=== PATIENT | female | born 1950 | race Caucasian/White ===

== ENCOUNTER 2021-10-07 20:41 | Inpatient (IN) ==
[2021-10-07] MEDS ORDERED: ALUM/MAG/SIMETH/LIDO VISC 1:1 30 ML BOTTLE PO STA (21:14)
[2021-10-07] MEDS ORDERED: SODIUM CHLORIDE 0.9% 1,000 ML IV STA (21:14)
[2021-10-07] MEDS ORDERED: ONDANSETRON 4 MG/2 ML VIAL IV STA (21:14)
[2021-10-07] MEDS ORDERED: PANTOPRAZOLE 40 MG TABLET PO STA (21:14)
[2021-10-07] MEDS ORDERED: MORPHINE 2 MG/1 ML SYRINGE IV STA ×2 (21:14→22:45)
[2021-10-07 21:20] LABS: Basophils % 0.2 % (0.0-0.8); Eosinophils % 0.2 % (0.00-10.9); Hematocrit 39.9 VOL% (35.7-47.0); Immature Granulocytes % 0.6 %; Immature Granulocytes Absolute 0.04 #; Lymphocytes % 15.6 % (21.3-54.2); Mean Corpuscular HGB Conc 32.6 GM/DL (32-36); Mean Corpuscular Volume 92.1 FL (87-102); Mean Platelet Volume 9.3 FL (9.6-12.0); Monocytes % 6.4 % (1.7-12.7); Platelet Count 219 T/CUMM (130-400); Red Blood Count 4.33 MC/CUMM (3.8-5.5); White Blood Count 6.4 T/CUMM (4-12)
[2021-10-07 21:40] LABS: Band Neutrophils 24 % (0-10); Eosinophils 1 % (0-10); Lymphocytes 16 % (20-55); Segmented Neutrophils 56 % (50-85); Total Cells Counted 100
[2021-10-07 21:41] LABS: Platelet Estimate Adequate
[2021-10-07 21:42] LABS: Albumin 3.6 G/DL (3.4-5.0); Bilirubin,Total 0.7 MG/DL (0.20-1.00); Calcium 9.3 MG/DL (8.5-10.1); Potassium 3.5 MMOL/L (3.5-5.1)
[2021-10-07] MEDS ORDERED: HYDROmorphone 2 MG/1 ML VIAL ONE (22:57)
[2021-10-07] MEDS ORDERED: HYDROmorphone 2 MG/1 ML VIAL IV STA (23:02)
[2021-10-08] MEDS ORDERED: KETOROLAC 30 MG/1 ML VIAL IV STA (00:13)
[2021-10-08] MEDS ORDERED: DEXTROSE 50% 25 GM/50 ML VIAL IV PRN (00:20)
[2021-10-08] MEDS ORDERED: KETOROLAC 30 MG/1 ML VIAL IV PRN (00:24)
[2021-10-08] MEDS ORDERED: DEXTROSE 50% 25 GM/50 ML SYRINGE IV PRN (00:29)
[2021-10-08 00:36] LABS: Bacteria,Urine Occasional /HPF (Few); Bilirubin,Urine Negative (Negative); Blood, Urine Moderate mg/dL (Negative); Glucose,Urine (UA) Negative (Negative); Ketones,Urine Negative (Negative); Nitrite,Urine Negative (Negative); Protein,Urine Negative; RBC,Urine 2 /HPF (0-4); Squamous Epithelial Cell,Urine Occasional /HPF (0-10); Urine Appearance CLEAR (Clear); Urine Color Yellow (Yellow); Urine Urobilinogen < 2.0 EU/DL (<2.0)
[2021-10-08 00:37] LABS: Urine Specific Gravity > 1.045 (1.001-1.035)
[2021-10-08] MEDS: SODIUM CHLORIDE 0.9% 1,000 ML IV SCH ×2 (01:06→16:28)
[2021-10-08] MEDS: ONDANSETRON 4 MG/2 ML VIAL IV PRN ×2 (01:48→06:47)
[2021-10-08 07:00] LABS: Basophils % 0.2 % (0.0-0.8); Eosinophils % 0.4 % (0.00-10.9); Hemoglobin 11.6 GM/DL (12.0-16.0); Immature Granulocytes % 0.2 %; Immature Granulocytes Absolute 0.01 #; Lymphocytes # 0.8 10*3/uL (1.4-4.0); Mean Corpuscular HGB Conc 32.2 GM/DL (32-36); Mean Platelet Volume 9.4 FL (9.6-12.0); Monocytes % 9.9 % (1.7-12.7); Neutrophils % 72.3 % (38.7-73.9); Platelet Count 181 T/CUMM (130-400); Red Blood Count 3.83 MC/CUMM (3.8-5.5); Red Cell Distribution Width 13.9 % (9.3-17.3); White Blood Count 4.6 T/CUMM (4-12)
[2021-10-08 07:19] LABS: Albumin 2.8 G/DL (3.4-5.0); Band Neutrophils 11 % (0-10); Bilirubin,Total 0.4 MG/DL (0.20-1.00); Calcium 8.9 MG/DL (8.5-10.1); Hypochromia Slight; Lymphocytes 13 % (20-55); Microcytosis Slight; Osmolality,Calculated 284.5 MOS/KG (273-304); Platelet Estimate Adequate; Potassium 3.7 MMOL/L (3.5-5.1); Segmented Neutrophils 67 % (50-85); Total Cells Counted 100; Total Protein 6.7 G/DL (6.4-8.2)
[2021-10-08] MEDS: ENOXAPARIN 40 MG/0.4 ML SYRINGE SUBCUT SCH (09:01)
[2021-10-08] MEDS: PANTOPRAZOLE 40 MG VIAL IV SCH (10:12)
[2021-10-08] MEDS ORDERED: KETOROLAC 15 MG/1 ML VIAL IV PRN (12:23)
[2021-10-08] MEDS ORDERED: HYDROmorphone 2 MG/1 ML VIAL IV PRN (12:23)
[2021-10-08] MEDS: LACTATED RINGERS 1,000 ML IV SCH ×2 (12:56→23:34)
[2021-10-08] MEDS: HYDROmorphone 2 MG/1 ML VIAL IV PRN ×2 (13:32→20:46)
[2021-10-08] MEDS ORDERED: PHENOL 1.4% THROAT SPRAY 177 ML BOTTLE PO PRN (14:50)
[2021-10-09] MEDS: HYDROmorphone 2 MG/1 ML VIAL IV PRN ×2 (03:28→12:32)
[2021-10-09 05:34] LABS: Basophils % 0.2 % (0.0-0.8); Eosinophils % 0.2 % (0.00-10.9); Hematocrit 33.7 VOL% (35.7-47.0); Hemoglobin 10.4 GM/DL (12.0-16.0); Immature Granulocytes % 0.4 %; Immature Granulocytes Absolute 0.02 #; Lymphocytes # 1.1 10*3/uL (1.4-4.0); Lymphocytes % 22.8 % (21.3-54.2); Mean Corpuscular HGB Conc 30.9 GM/DL (32-36); Mean Corpuscular Volume 96.3 FL (87-102); Monocytes % 7.4 % (1.7-12.7); Platelet Count 188 T/CUMM (130-400); White Blood Count 4.9 T/CUMM (4-12)
[2021-10-09 06:01] LABS: Alanine Aminotransferase 15 U/L (13-56); Albumin 2.5 G/DL (3.4-5.0); Alkaline Phosphatase 45 U/L (45-117); Aspartate Amino Transferase 20 U/L (0-37); Bilirubin,Total < 0.39 MG/DL (0.20-1.00); Blood Urea Nitrogen 27 MG/DL (7-18); Calcium 8.7 MG/DL (8.5-10.1); Carbon Dioxide 22 MMOL/L (21-32); Estimated Glom Filtration Rate 87 ML/MIN; Glucose 75 MG/DL (74-106); Osmolality,Calculated 284.3 MOS/KG (273-304); Potassium 3.5 MMOL/L (3.5-5.1); Sodium 141 MMOL/L (136-145); Total Protein 6.4 G/DL (6.4-8.2)
[2021-10-09 06:14] LABS: Band Neutrophils 6 % (0-10); Lymphocytes 19 % (20-55); Platelet Estimate Normal; Segmented Neutrophils 70 % (50-85); Total Cells Counted 100
[2021-10-09] MEDS: LACTATED RINGERS 1,000 ML IV SCH ×2 (10:14→20:57)
[2021-10-09] MEDS: PANTOPRAZOLE 40 MG VIAL IV SCH (10:15)
[2021-10-09] MEDS: ENOXAPARIN 40 MG/0.4 ML SYRINGE SUBCUT SCH (10:15)
[2021-10-09] MEDS: ZALEPLON 5 MG CAPSULE PO SCH (20:56)
[2021-10-10] MEDS: LACTATED RINGERS 1,000 ML IV SCH ×3 (02:31→07:18)
[2021-10-10 04:03] LABS: Basophils % 0.5 % (0.0-0.8); Eosinophils % 0.5 % (0.00-10.9); Hematocrit 40.7 VOL% (35.7-47.0); Immature Granulocytes % 0.5 %; Immature Granulocytes Absolute 0.02 #; Lymphocytes # 1.4 10*3/uL (1.4-4.0); Mean Corpuscular HGB Conc 31.9 GM/DL (32-36); Mean Corpuscular Volume 94.4 FL (87-102); Mean Platelet Volume 9.2 FL (9.6-12.0); Monocytes % 6.4 % (1.7-12.7); Neutrophils % 57.1 % (38.7-73.9); Platelet Count 145 T/CUMM (130-400); Red Blood Count 4.31 MC/CUMM (3.8-5.5); Red Cell Distribution Width 13.5 % (9.3-17.3); White Blood Count 4.1 T/CUMM (4-12)
[2021-10-10 04:12] LABS: Calcium 8.5 MG/DL (8.5-10.1); Osmolality,Calculated 285.8 MOS/KG (273-304); Potassium 3.4 MMOL/L (3.5-5.1)
[2021-10-10] MEDS: PRAMIPEXOLE 1 MG TABLET PO SCH (09:31)
[2021-10-10] MEDS: PANTOPRAZOLE 40 MG VIAL IV SCH (09:31)
[2021-10-10] MEDS: lisinopriL 20 MG TABLET PO SCH (09:31)
[2021-10-10] MEDS: OXYBUTYNIN XL 10 MG TABLET PO SCH (09:31)
[2021-10-10] MEDS: ENOXAPARIN 40 MG/0.4 ML SYRINGE SUBCUT SCH (09:31)
[2021-10-10] MEDS ORDERED: POTASSIUM CHLORIDE 20 MEQ TABLET PO ONE (13:15)
[2021-10-10] MEDS: ONDANSETRON 4 MG/2 ML VIAL IV PRN (17:04)
[2021-10-10] MEDS: ZALEPLON 5 MG CAPSULE PO SCH (21:04)
[2021-10-11] MEDS: lisinopriL 20 MG TABLET PO SCH (10:01)
[2021-10-11] MEDS: OXYBUTYNIN XL 10 MG TABLET PO SCH (10:01)
[2021-10-11] MEDS: PRAMIPEXOLE 1 MG TABLET PO SCH (10:01)
[2021-10-11] MEDS: ENOXAPARIN 40 MG/0.4 ML SYRINGE SUBCUT SCH (10:02)
[2021-10-11] MEDS: PANTOPRAZOLE 40 MG VIAL IV SCH (10:02)
[2021-10-11] MEDS: ONDANSETRON 4 MG/2 ML VIAL IV PRN (12:20)
[2021-10-11] MEDS: ZALEPLON 5 MG CAPSULE PO SCH (21:23)
[2021-10-12] MEDS: PRAMIPEXOLE 1 MG TABLET PO SCH (09:14)
[2021-10-12] MEDS: ENOXAPARIN 40 MG/0.4 ML SYRINGE SUBCUT SCH (09:14)
[2021-10-12] MEDS: lisinopriL 20 MG TABLET PO SCH (09:14)
[2021-10-12] MEDS: OXYBUTYNIN XL 10 MG TABLET PO SCH (09:15)
[2021-10-12] MEDS: PANTOPRAZOLE 40 MG VIAL IV SCH (09:17)
[2021-10-12] MEDS: DOCUSATE SODIUM 100 MG CAPSULE PO SCH ×2 (15:14→21:24)
[2021-10-12] MEDS: POLYETHYLENE GLYCOL POWDER 17 GM PACK PO SCH ×2 (15:14→21:26)
[2021-10-12] MEDS: ZALEPLON 5 MG CAPSULE PO SCH (21:24)
[2021-10-13 06:06] LABS: Basophils % 0.4 % (0.0-0.8); Eosinophils % 0.6 % (0.00-10.9); Hematocrit 30.9 VOL% (35.7-47.0); Immature Granulocytes % 5.8 %; Immature Granulocytes Absolute 0.42 #; Lymphocytes # 2.3 10*3/uL (1.4-4.0); Lymphocytes % 31.3 % (21.3-54.2); Mean Corpuscular HGB Conc 33.3 GM/DL (32-36); Mean Corpuscular Volume 91.2 FL (87-102); Mean Platelet Volume 9.7 FL (9.6-12.0); Monocytes % 7.1 % (1.7-12.7); Neutrophils % 54.8 % (38.7-73.9)
[2021-10-13 06:21] LABS: Hemoglobin 10.3 GM/DL (12.0-16.0); Platelet Count 225 T/CUMM (130-400); Red Blood Count 3.39 MC/CUMM (3.8-5.5); White Blood Count 7.2 T/CUMM (4-12)
[2021-10-13 06:28] LABS: Eosinophils 1 % (0-10); Hypochromia Slight; Lymphocytes 35 % (20-55); Microcytosis Slight; Platelet Estimate Adequate; Segmented Neutrophils 58 % (50-85); Total Cells Counted 100
[2021-10-13 06:31] LABS: Calcium 8.6 MG/DL (8.5-10.1); Osmolality,Calculated 281.1 MOS/KG (273-304); Potassium 3.4 MMOL/L (3.5-5.1)
[2021-10-13] MEDS ORDERED: MAGNESIUM HYDROXIDE SUSP 30 ML UDCUP PO ONE (08:24)
[2021-10-13] MEDS ORDERED: LINACLOTIDE 145 MCG CAPSULE PO SCH (08:30)
[2021-10-13] MEDS: POLYETHYLENE GLYCOL POWDER 17 GM PACK PO SCH (08:46)
[2021-10-13] MEDS: ENOXAPARIN 40 MG/0.4 ML SYRINGE SUBCUT SCH (08:47)
[2021-10-13] MEDS: PANTOPRAZOLE 40 MG VIAL IV SCH (08:49)
[2021-10-13] MEDS: lisinopriL 20 MG TABLET PO SCH (08:49)
[2021-10-13] MEDS: OXYBUTYNIN XL 10 MG TABLET PO SCH (08:49)
[2021-10-13] MEDS: DOCUSATE SODIUM 100 MG CAPSULE PO SCH (08:49)
[2021-10-13 13:24] VITALS: BP 144/56
[2021-10-13] MEDS ORDERED: PRAMIPEXOLE 1 MG TABLET PO SCH (21:00)
== END 2021-10-13 16:10 | disposition home or self-care (01) | DRG 389 ==
LOC: N.ED 20:41 → N.EDINP 20:41 → SUATTDRO 10-08 00:20 → N.EDINP 10-08 09:47 → N.TELEN 10-08 10:16 → SUATTDRO 10-10 14:33
PROVIDERS: ADMIT Internal Medicine; ATTEND Hospitalist

== ENCOUNTER 2022-09-28 03:13 | Inpatient (IN) ==
[2022-09-28] MEDS ORDERED: ONDANSETRON 4 MG/2 ML VIAL IV STA (03:47)
[2022-09-28] MEDS ORDERED: HYDROmorphone 1 MG/1 ML SYRINGE IV STA (03:47)
[2022-09-28] MEDS ORDERED: KETOROLAC 30 MG/1 ML VIAL IV STA (03:47)
[2022-09-28 03:48] LABS: Basophils % 0.2 % (0.0-0.8); Eosinophils # 0.1 10*3/uL (0.0-0.87); Eosinophils % 0.5 % (0.00-10.9); Hematocrit 38.7 VOL% (35.7-47.0); Hemoglobin 12.2 GM/DL (12.0-16.0); Immature Granulocytes % 0.6 %; Immature Granulocytes Absolute 0.08 #; Lymphocytes # 1.8 10*3/uL (1.4-4.0); Lymphocytes % 13.9 % (21.3-54.2); Mean Corpuscular HGB Conc 31.5 GM/DL (32-36); Mean Corpuscular Volume 96.5 FL (87-102); Mean Platelet Volume 9.1 FL (9.6-12.0); Monocytes # 0.6 10*3/uL (0.11-0.8); Monocytes % 4.5 % (1.7-12.7); Neutrophils % 80.3 % (38.7-73.9); Platelet Count 263 T/CUMM (130-400); Red Blood Count 4.01 MC/CUMM (3.8-5.5); Red Cell Distribution Width 13.4 % (9.3-17.3); White Blood Count 12.9 T/CUMM (4-12)
[2022-09-28] MEDS ORDERED: SODIUM CHLORIDE 0.9% 1,000 ML IV STA (03:48)
[2022-09-28] MEDS ORDERED: KETOROLAC 30 MG/1 ML VIAL ONE (03:49)
[2022-09-28] MEDS ORDERED: HYDROmorphone 1 MG/1 ML SYRINGE ONE (03:49)
[2022-09-28 04:11] LABS: Alanine Aminotransferase 20 U/L (13-56); Alkaline Phosphatase 69 U/L (45-117); Aspartate Amino Transferase 13 U/L (0-37); Bilirubin,Total < 0.39 MG/DL (0.20-1.00); Blood Urea Nitrogen 24 MG/DL (7-18); Calcium 9.5 MG/DL (8.5-10.1); Carbon Dioxide 22 MMOL/L (21-32); Chloride 110 MMOL/L (98-107); Glucose 180 MG/DL (74-106); Osmolality,Calculated 283.7 MOS/KG (273-304); Potassium 4.3 MMOL/L (3.5-5.1); Sodium 138 MMOL/L (136-145); Total Protein 7.8 G/DL (6.4-8.2)
[2022-09-28] MEDS ORDERED: ACETAMINOPHEN 325 MG TABLET PO PRN (05:59)
[2022-09-28] MEDS ORDERED: hydrALAZINE 20 MG/1 ML VIAL IV PRN (05:59)
[2022-09-28] MEDS: HYDROmorphone 1 MG/1 ML SYRINGE IV PRN ×3 (06:22→14:56)
[2022-09-28 06:32] LABS: Bacteria,Urine Occasional /HPF (Few); Mucus,Urine Occasional /LPF (Occasional); RBC,Urine 106 /HPF (0-4); Squamous Epithelial Cell,Urine Few /HPF (0-10)
[2022-09-28 06:33] LABS: Bilirubin,Urine Negative (Negative); Blood, Urine Large mg/dL (Negative); Glucose,Urine (UA) Negative (Negative); Ketones,Urine Negative (Negative); Nitrite,Urine Negative (Negative); Protein,Urine Negative (Negative); Urine Appearance Clear (Clear); Urine Color Yellow (Yellow); Urine Specific Gravity > 1.030 (1.001-1.035); Urine Urobilinogen 0.2 eU/dL (<2.0); Urine pH 5.5 (4.5-8.0)
[2022-09-28] MEDS ORDERED: NICOTINE 21 MG/24 HR PATCH TRANSDERM PRN (06:36)
[2022-09-28] MEDS: LEVOFLOXACIN INJ 750 MG/150 ML PREMIX IV SCH (08:01)
[2022-09-28] MEDS: LACTATED RINGERS 1,000 ML IV SCH ×2 (10:07→14:55)
[2022-09-28] MEDS: PANTOPRAZOLE 40 MG TABLET PO SCH (10:08)
[2022-09-28] MEDS: ONDANSETRON 4 MG/2 ML VIAL IV PRN ×2 (12:00→14:55)
[2022-09-28] MEDS: INSULIN LISPRO 100 UNIT/ML SUBCUT SCH ×2 (13:03→17:53)
[2022-09-29] MEDS: INSULIN LISPRO 100 UNIT/ML SUBCUT SCH ×4 (00:03→19:18)
[2022-09-29] MEDS: LACTATED RINGERS 1,000 ML IV SCH ×3 (01:23→19:25)
[2022-09-29 05:40] LABS: Calcium 8.8 MG/DL (8.5-10.1); Potassium 4.5 MMOL/L (3.5-5.1)
[2022-09-29 05:55] LABS: Basophils % 0.3 % (0.0-0.8); Eosinophils # 0.1 10*3/uL (0.0-0.87); Eosinophils % 1.1 % (0.00-10.9); Hematocrit 30.8 VOL% (35.7-47.0); Hemoglobin 9.8 GM/DL (12.0-16.0); Immature Granulocytes % 0.4 %; Immature Granulocytes Absolute 0.03 #; Lymphocytes # 2.6 10*3/uL (1.4-4.0); Lymphocytes % 37.4 % (21.3-54.2); Mean Corpuscular HGB Conc 31.8 GM/DL (32-36); Mean Corpuscular Volume 97.2 FL (87-102); Mean Platelet Volume 9.5 FL (9.6-12.0); Monocytes # 0.5 10*3/uL (0.11-0.8); Neutrophils % 53.8 % (38.7-73.9); Platelet Count 189 T/CUMM (130-400); Red Blood Count 3.17 MC/CUMM (3.8-5.5); Red Cell Distribution Width 13.2 % (9.3-17.3)
[2022-09-29] MEDS ORDERED: TOBRAMYCIN INJ 80 MG in SODIUM CHLORIDE 0.9% 100 ML IV ONE ×2 (07:00→11:00)
[2022-09-29] MEDS: PANTOPRAZOLE 40 MG TABLET PO SCH (08:20)
[2022-09-29] MEDS: LEVOFLOXACIN INJ 750 MG/150 ML PREMIX IV SCH (08:20)
[2022-09-29] MEDS ORDERED: LIDOCAINE 2% 5 ML VIAL ONE (08:58)
[2022-09-29] MEDS ORDERED: propofoL 200 MG/20 ML VIAL IV ONE (08:58)
[2022-09-29] MEDS ORDERED: fentaNYL 100 MCG/2 ML VIAL ONE (08:59)
[2022-09-29] MEDS ORDERED: MIDAZOLAM 2 MG/2 ML VIAL ONE (08:59)
[2022-09-29] MEDS: HYDROmorphone 1 MG/1 ML SYRINGE IV PRN ×4 (11:21→23:10)
[2022-09-29] MEDS ORDERED: ROCURONIUM 50 MG/5 ML VIAL IV ONE (13:54)
[2022-09-29] MEDS ORDERED: LACTATED RINGERS 1,000 ML IV ONE (14:28)
[2022-09-29] MEDS ORDERED: ePHEDrine 50 MG/ML VIAL ONE (14:28)
[2022-09-29] MEDS ORDERED: DEXAMETHASONE 4 MG/1 ML VIAL ONE (14:28)
[2022-09-29] MEDS ORDERED: SEVOFLURANE 1 UNIT/15 MINUTE INH ONE (14:28)
[2022-09-29] MEDS ORDERED: ONDANSETRON 4 MG/2 ML VIAL ONE (14:28)
[2022-09-29] MEDS ORDERED: SUGAMMADEX 200 MG/2 ML VIAL IV ONE (14:37)
[2022-09-30] MEDS: LACTATED RINGERS 1,000 ML IV SCH ×2 (03:09→10:24)
[2022-09-30] MEDS: HYDROmorphone 1 MG/1 ML SYRINGE IV PRN (04:58)
[2022-09-30 05:33] LABS: Basophils % 0.1 % (0.0-0.8); Hematocrit 31.3 VOL% (35.7-47.0); Hemoglobin 10.3 GM/DL (12.0-16.0); Immature Granulocytes % 0.6 %; Immature Granulocytes Absolute 0.07 #; Lymphocytes # 1.5 10*3/uL (1.4-4.0); Lymphocytes % 13.6 % (21.3-54.2); Mean Corpuscular HGB Conc 32.9 GM/DL (32-36); Mean Corpuscular Volume 95.1 FL (87-102); Mean Platelet Volume 9.3 FL (9.6-12.0); Monocytes # 0.6 10*3/uL (0.11-0.8); Monocytes % 4.9 % (1.7-12.7); Neutrophils % 80.8 % (38.7-73.9); Platelet Count 206 T/CUMM (130-400); Red Blood Count 3.29 MC/CUMM (3.8-5.5); Red Cell Distribution Width 12.8 % (9.3-17.3); White Blood Count 11.2 T/CUMM (4-12)
[2022-09-30 05:53] LABS: Alanine Aminotransferase 17 U/L (13-56); Albumin 3.2 G/DL (3.4-5.0); Alkaline Phosphatase 55 U/L (45-117); Aspartate Amino Transferase 12 U/L (0-37); Bilirubin,Total < 0.39 MG/DL (0.20-1.00); Blood Urea Nitrogen 16 MG/DL (7-18); Calcium 9.2 MG/DL (8.5-10.1); Carbon Dioxide 23 MMOL/L (21-32); Chloride 110 MMOL/L (98-107); Glucose 180 MG/DL (74-106); Osmolality,Calculated 284.4 MOS/KG (273-304); Potassium 4.6 MMOL/L (3.5-5.1); Sodium 140 MMOL/L (136-145); Total Protein 6.5 G/DL (6.4-8.2)
[2022-09-30] MEDS: INSULIN LISPRO 100 UNIT/ML SUBCUT SCH ×3 (05:57→13:19)
[2022-09-30] MEDS: LEVOFLOXACIN INJ 750 MG/150 ML PREMIX IV SCH (08:08)
[2022-09-30] MEDS: PANTOPRAZOLE 40 MG TABLET PO SCH (08:08)
[2022-09-30 08:10] VITALS: BP 146/52
== END 2022-09-30 12:38 | disposition home or self-care (01) | DRG 661 ==
LOC: SUATTDRO → N.ED 03:13 → N.EDINP 05:59 → N.2E 16:09
PROVIDERS: ADMIT Family Medicine; ATTEND Family Medicine